=== PATIENT | female | born 1970 | race Two or more races ===

== ENCOUNTER 2022-09-28 07:00 | Emergency (ER) | payer OTHER ==
[~2022-09-28] VITALS: Ht 177.8 cm; Wt 90.0 kg
[2022-09-28 08:00] VITALS: BP 129/81
== END 2022-09-28 20:03 | disposition home or self-care (01) ==
LOC: ER 07:00 → EDBD 07:00 → ER 20:03
DX: Z00.00 Encounter for general adult medical examination without abnormal findings (principal); Z88.0 Allergy status to penicillin